=== PATIENT | female | born 1980 | race Caucasian/White ===

== ENCOUNTER 2016-08-26 13:59 | Emergency (ER) | payer BC ==
[2016-09-17] MEDS ORDERED: PRIN5 PO (15:40)
[2016-09-17] MEDS ORDERED: PRILO PO (15:40)
[2016-09-17] MEDS ORDERED: ZYRTEC ALLGY10 MG PO (15:40)
[2016-09-17] MEDS ORDERED: MULTIVITAMI1 PO (15:41)
[2016-09-17] MEDS ORDERED: HYDROCHLOROT25 MG PO (15:41)
[2016-09-17] MEDS ORDERED: VITAMIN D2000 UNIT PO (15:42)
[2016-09-17] MEDS ORDERED: CALTRAT600 PO (15:42)
[2016-09-17] MEDS ORDERED: NEUR600 PO ×2 (15:43→15:44)
[2016-09-17] MEDS ORDERED: ACET500CAP PO (15:45)
[2016-09-17] MEDS ORDERED: ADVIL PO (15:45)
[2016-09-20] MEDS ORDERED: NEUR100 PO (10:59)
[2016-09-20] MEDS ORDERED: METHOC750B PO (11:01)
[2016-09-20] MEDS ORDERED: OXYCON10 PO (11:03)
== END 2016-08-26 19:01 | disposition home or self-care (01) ==
LOC: ER 13:59
DX: M54.5 Low back pain (principal); I10 Essential (primary) hypertension
CPT/HCPCS: 93005; 96372; 99283; J2800